=== PATIENT | male | born 1950 | race Caucasian/White ===

== ENCOUNTER 2018-04-11 15:52 | Inpatient (IN) | payer OTHER ==
[~2018-04-11] VITALS: Ht 175.3 cm; Wt 94.0 kg
[2018-04-11 16:29] LABS: INTER. NORMALIZED RATIO 1.6
[2018-04-11 16:32] LABS: PTT 26.8 SEC (25-37)
[2018-04-11 16:37] LABS: ALBUMIN 3.2 g/dL (3.2-4.8); CHLORIDE 96 mEq/L (99-109); SODIUM 134 mEq/L (136-147)
[2018-04-11 16:40] LABS: GLUCOSE 135 mg/dL (70-99); TOTAL PROTEIN 6.2 g/dL (6.4-8.3)
[2018-04-11 16:41] LABS: TOTAL BILIRUBIN 6.4 mg/dL (0.0-1.0)
[2018-04-11 16:43] LABS: ALKALINE PHOSPHATASE 209 IU/L (3-129); CREATININE 1.7 mg/dL (0.6-1.3); GFR ESTIMATE (CALCULATED) 43 mL/min/ (58.99-99999); SERUM ETHYL ALCOHOL < 10 mg/dL
[2018-04-11 16:44] LABS: UREA NITROGEN (BUN) 24 mg/dL (9-23)
[2018-04-11 16:45] LABS: AST (GOT) 197 IU/L (2-34); DIRECT BILIRUBIN 4.5 mg/dL (0.0-0.3)
[2018-04-11 16:46] LABS: ALT (GPT) 32 IU/L (3-49); TROP-I INTERPRETATION NEGATIVE; TROPONIN-I 0.02 ng/mL (0.0-0.30)
[2018-04-11 16:47] LABS: LIPASE 135 U/L (1.0-51.0)
[2018-04-11 16:53] LABS: POTASSIUM 2.3 mEq/L (3.7-5.4)
[2018-04-11 17:17] LABS: BASOPHIL (%) 0.3 % (0-1); EOSINOPHIL (%) 0.2 % (0-5); HEMATOCRIT 36.1 % (38.0-50.0); HEMOGLOBIN 13.3 G/DL (12.5-16.6); IMMATURE GRANULOCYTE (%) 1.3 % (0.0-0.7); LYMPHOCYTE (%) 8.2 % (15-42); LYMPHOCYTE COUNT 1.2 K/uL (1.0-2.8); MCH 36.3 PG (29.0-34.0); MCHC 36.8 G/DL (30.0-36.0); MCV 98.6 FL (86-99); MONOCYTE (%) 15.7 % (3-12); MONOCYTE COUNT 2.3 K/uL (0-0.8); NEUTROPHIL (%) 74.3 % (45-76); NEUTROPHIL COUNT 10.6 K/uL (1.8-6.4); PLATELET COUNT 113 K/uL (156-360); RBC DIS.WIDTH-SD 53.9 % (39-53); RED BLOOD COUNT 3.66 M/uL (4.00-5.50); WHITE BLOOD COUNT 14.3 K/uL (4.1-10.2)
[2018-04-11] MEDS ORDERED: LO-DOSE ASPIRIN81 M1 PO (18:07)
[2018-04-11 21:27] LABS: APPEARANCE SL.HAZY ((CLEAR)); BILIRUBIN SMALL; BLOOD NEGATIVE; COLOR AMBER ((YELLOW)); GLUCOSE (STRIP) NEGATIVE; KETONES NEGATIVE; LEUKOCYTES NEGATIVE; NITRITE NEGATIVE; PROTEIN (STRIP) 30; SPECIFIC GRAVITY 1.014 (1.000-1.030)
[2018-04-11 21:49] LABS: BACTERIA RARE /HPF; CALCIUM OXALATE CRYSTALS 3+ /HPF; EPITHELIAL CELLS RARE /HPF; HYALINE CASTS 20-30 /LPF; MUCUS TRACE /LPF; RED BLOOD CELLS 0-5 /HPF (0-5); UCUL ADDED? YES
[2018-04-11 22:45] VITALS: BP 150/73
[2018-04-11 23:35] LABS: MAGNESIUM 1.4 mg/dL (1.3-2.7)
[2018-04-11 23:40] LABS: PHOSPHORUS 1.2 mg/dL (2.5-4.9)
[2018-04-12 03:30] VITALS: BP 104/64
[2018-04-12 05:41] LABS: HEMOGLOBIN 12.2 G/DL (12.5-16.6); MCH 36.1 PG (29.0-34.0); MCHC 35.9 G/DL (30.0-36.0); MCV 100.6 FL (86-99); PLATELET COUNT 104 K/uL (156-360); RBC DIS.WIDTH-CV 15.4 % (11.8-14.6); RBC DIS.WIDTH-SD 55.9 % (39-53); RED BLOOD COUNT 3.38 M/uL (4.00-5.50); WHITE BLOOD COUNT 12.4 K/uL (4.1-10.2)
[2018-04-12 06:17] LABS: CHLORIDE 103 MEQ/L (99-109); CREATININE 1.3 MG/DL (0.6-1.3); GFR ESTIMATE (CALCULATED) 59 mL/min/ (58.99-99999); POTASSIUM 2.5 MEQ/L (3.7-5.4); SODIUM 138 MEQ/L (136-147); UREA NITROGEN (BUN) 23 mg/dL (9-23)
[2018-04-12 06:24] LABS: GLUCOSE 87 mg/dL (70-99)
[2018-04-12 07:41] LABS: THYROTROPIN (TSH) 10.1 MIU/L (0.4-5.5)
[2018-04-12 07:52] LABS: FOLIC ACID (FOLATE) 6.9 NG/ML (5.0-22.0)
[2018-04-12 07:56] VITALS: BP 113/67
[2018-04-12 10:45] LABS: HEPATITIS B SURFACE ANTIGEN Nonreactive
[2018-04-12 10:46] LABS: HEPATITIS B SURFACE ANTIBODY Nonreactive; HEPATITIS C ANTIBODY Nonreactive
[2018-04-12 13:15] LABS: CHLORIDE 102 MEQ/L (99-109); CREATININE 1.3 MG/DL (0.6-1.3); GFR ESTIMATE (CALCULATED) 59 mL/min/ (58.99-99999); GLUCOSE 129 mg/dL (70-99); POTASSIUM 2.9 MEQ/L (3.7-5.4); SODIUM 135 MEQ/L (136-147); UREA NITROGEN (BUN) 23 mg/dL (9-23)
[2018-04-12 13:26] VITALS: BP 119/72
[2018-04-12 15:57] VITALS: BP 142/80
[2018-04-12 20:16] VITALS: BP 139/78
[2018-04-13 00:11] VITALS: BP 133/77
[2018-04-13 04:32] VITALS: BP 114/73
[2018-04-13 05:33] LABS: BASOPHIL (%) 0.6 % (0-1); BASOPHIL COUNT 0.1 K/uL (0-0.1); EOSINOPHIL (%) 0.7 % (0-5); EOSINOPHIL COUNT 0.1 K/uL (0-0.3); HEMATOCRIT 35.6 % (38.0-50.0); HEMOGLOBIN 12.8 G/DL (12.5-16.6); IMMATURE GRANULOCYTE (%) 1.4 % (0.0-0.7); LYMPHOCYTE COUNT 1.5 K/uL (1.0-2.8); MCH 36.1 PG (29.0-34.0); MCV 100.3 FL (86-99); MONOCYTE (%) 15.4 % (3-12); MONOCYTE COUNT 1.9 K/uL (0-0.8); NEUTROPHIL (%) 69.9 % (45-76); NEUTROPHIL COUNT 8.8 K/uL (1.8-6.4); PLATELET COUNT 120 K/uL (156-360); RBC DIS.WIDTH-CV 15.9 % (11.8-14.6); RBC DIS.WIDTH-SD 58.1 % (39-53); RED BLOOD COUNT 3.55 M/uL (4.00-5.50); WHITE BLOOD COUNT 12.6 K/uL (4.1-10.2)
[2018-04-13 06:02] LABS: ALBUMIN 2.7 G/DL (3.2-4.8); ALKALINE PHOSPHATASE 155 IU/L (3-129); ALT (GPT) 20 IU/L (3-49); AST (GOT) 132 IU/L (2-34); CHLORIDE 106 MEQ/L (99-109); GFR ESTIMATE (CALCULATED) > 59 mL/min/ (58.99-99999); GLUCOSE 130 mg/dL (70-99); POTASSIUM 2.9 MEQ/L (3.7-5.4); SODIUM 138 MEQ/L (136-147); TOTAL BILIRUBIN 5.9 MG/DL (0.0-1.0); TOTAL PROTEIN 5.2 G/DL (6.4-8.3); UREA NITROGEN (BUN) 19 mg/dL (9-23)
[2018-04-13 08:57] VITALS: BP 166/90
[2018-04-13 11:43] VITALS: BP 161/90
[2018-04-13 17:59] VITALS: BP 143/77
[2018-04-13 19:20] VITALS: BP 154/78
[2018-04-14 00:10] VITALS: BP 151/86
[2018-04-14 03:14] VITALS: BP 141/88
[2018-04-14 05:21] LABS: BASOPHIL (%) 0.7 % (0-1); BASOPHIL COUNT 0.1 K/uL (0-0.1); EOSINOPHIL (%) 0.7 % (0-5); EOSINOPHIL COUNT 0.1 K/uL (0-0.3); HEMATOCRIT 36.2 % (38.0-50.0); HEMOGLOBIN 13.1 G/DL (12.5-16.6); IMMATURE GRANULOCYTE (%) 1.7 % (0.0-0.7); LYMPHOCYTE (%) 10.7 % (15-42); LYMPHOCYTE COUNT 1.3 K/uL (1.0-2.8); MCH 36.9 PG (29.0-34.0); MCHC 36.2 G/DL (30.0-36.0); MONOCYTE (%) 17.9 % (3-12); MONOCYTE COUNT 2.2 K/uL (0-0.8); NEUTROPHIL (%) 68.3 % (45-76); NEUTROPHIL COUNT 8.5 K/uL (1.8-6.4); NRBC (%) 0.2 /100 WBC (0-0); PLATELET COUNT 133 K/uL (156-360); RBC DIS.WIDTH-CV 17.3 % (11.8-14.6); RED BLOOD COUNT 3.55 M/uL (4.00-5.50); WHITE BLOOD COUNT 12.4 K/uL (4.1-10.2)
[2018-04-14 05:23] LABS: INTER. NORMALIZED RATIO 1.7
[2018-04-14 05:49] LABS: ALBUMIN 2.8 G/DL (3.2-4.8); ALKALINE PHOSPHATASE 151 IU/L (3-129); ALT (GPT) 21 IU/L (3-49); AST (GOT) 147 IU/L (2-34); CHLORIDE 107 MEQ/L (99-109); GFR ESTIMATE (CALCULATED) > 59 mL/min/ (58.99-99999); GLUCOSE 135 mg/dL (70-99); POTASSIUM 3.7 MEQ/L (3.7-5.4); SODIUM 140 MEQ/L (136-147); TOTAL BILIRUBIN 5.9 MG/DL (0.0-1.0); TOTAL PROTEIN 5.5 G/DL (6.4-8.3); UREA NITROGEN (BUN) 15 mg/dL (9-23)
[2018-04-14 09:21] VITALS: BP 120/80
[2018-04-14 12:13] VITALS: BP 145/81
[2018-04-14 19:22] VITALS: BP 126/72
[2018-04-15 00:08] VITALS: BP 126/77
[2018-04-15 04:10] VITALS: BP 126/75
[2018-04-15 05:44] LABS: BASOPHIL (%) 0.7 % (0-1); BASOPHIL COUNT 0.1 K/uL (0-0.1); EOSINOPHIL (%) 0.9 % (0-5); EOSINOPHIL COUNT 0.1 K/uL (0-0.3); HEMATOCRIT 39.1 % (38.0-50.0); HEMOGLOBIN 13.4 G/DL (12.5-16.6); IMMATURE GRANULOCYTE (%) 1.5 % (0.0-0.7); LYMPHOCYTE (%) 14.5 % (15-42); MCH 36.2 PG (29.0-34.0); MCHC 34.3 G/DL (30.0-36.0); MCV 105.7 FL (86-99); MONOCYTE (%) 18.1 % (3-12); MONOCYTE COUNT 2.5 K/uL (0-0.8); NEUTROPHIL (%) 64.3 % (45-76); NEUTROPHIL COUNT 8.8 K/uL (1.8-6.4); NRBC (%) 0.1 /100 WBC (0-0); PLATELET COUNT 159 K/uL (156-360); RBC DIS.WIDTH-CV 18.2 % (11.8-14.6); RBC DIS.WIDTH-SD 70.4 % (39-53); WHITE BLOOD COUNT 13.7 K/uL (4.1-10.2)
[2018-04-15 06:07] LABS: ALBUMIN 2.8 G/DL (3.2-4.8); ALKALINE PHOSPHATASE 170 IU/L (3-129); ALT (GPT) 20 IU/L (3-49); AST (GOT) 134 IU/L (2-34); CHLORIDE 107 MEQ/L (99-109); GFR ESTIMATE (CALCULATED) > 59 mL/min/ (58.99-99999); GLUCOSE 133 mg/dL (70-99); SODIUM 139 MEQ/L (136-147); TOTAL BILIRUBIN 5.8 MG/DL (0.0-1.0); TOTAL PROTEIN 5.6 G/DL (6.4-8.3); UREA NITROGEN (BUN) 15 mg/dL (9-23)
[2018-04-15 07:25] VITALS: BP 141/79
[2018-04-15 12:56] VITALS: BP 138/83
[2018-04-15 16:16] VITALS: BP 145/87
[2018-04-15 20:05] LABS: HEMATOCRIT 39.4 % (38.0-50.0); HEMOGLOBIN 13.8 G/DL (12.5-16.6); MCH 36.8 PG (29.0-34.0); MCV 105.1 FL (86-99); PLATELET COUNT 165 K/uL (156-360); RBC DIS.WIDTH-CV 18.6 % (11.8-14.6); RED BLOOD COUNT 3.75 M/uL (4.00-5.50)
[2018-04-15 20:10] LABS: INTER. NORMALIZED RATIO 1.6
[2018-04-15 20:12] LABS: PTT 34.5 SEC (25-37)
[2018-04-15 20:15] LABS: ALBUMIN 2.7 G/DL (3.2-4.8); CHLORIDE 105 MEQ/L (99-109); POTASSIUM 4.2 MEQ/L (3.7-5.4); SODIUM 139 MEQ/L (136-147); TOTAL BILIRUBIN 5.6 MG/DL (0.0-1.0)
[2018-04-15 20:20] LABS: ALKALINE PHOSPHATASE 165 IU/L (3-129); ALT (GPT) 17 IU/L (3-49); AST (GOT) 126 IU/L (2-34); GFR ESTIMATE (CALCULATED) > 59 mL/min/ (58.99-99999); GLUCOSE 121 mg/dL (70-99); TOTAL PROTEIN 5.5 G/DL (6.4-8.3); UREA NITROGEN (BUN) 15 mg/dL (9-23)
[2018-04-15 20:25] LABS: TROP-I INTERPRETATION NEGATIVE; TROPONIN-I 0.01 ng/mL (0.0-0.30)
[2018-04-15 20:34] LABS: COMMENTS - BLOOD GASES A+C+; DEVICE ROOM AIR; FI02 21 %; SITE RR
[2018-04-15 20:35] LABS: O2 SATURATION (CALCULATED) 91.5 % (95-99); PCO2 32 mm Hg (35-45); PO2 54 mm Hg (80-100); TOTAL RESP RATE 26 resp/min; pH 7.46 (7.35-7.45)
[2018-04-15 20:36] LABS: BASE EXCESS -0.3 mEq/L (-3 to +3); BICARBONATE 22.8 mEq/L (22-26); CARBOXY HGB 2.5 % (0-5); METHEMOGLOBIN 0.7 % (0-1.5)
[2018-04-15 21:00] VITALS: BP 139/85
[2018-04-15 22:40] LABS: TOTAL CHOLESTEROL 149 mg/dL (Desirable<200); TRIGLYCERIDES 200 MG/DL (Normal: <150)
[2018-04-15 22:42] LABS: LDL CHOLESTEROL 104 mg/dL (Desirable<100); NON-HDL CHOLESTEROL 144 mg/dL (Desirable<160)
[2018-04-15 22:43] LABS: HDL CHOLESTEROL < 5 MG/DL (Desirable>=40)
[2018-04-16] VITALS (7 sets, daily range): BP systolic 100–137; BP diastolic 63–87
[2018-04-16 05:18] LABS: BASOPHIL (%) 0.8 % (0-1); BASOPHIL COUNT 0.1 K/uL (0-0.1); EOSINOPHIL (%) 1.2 % (0-5); EOSINOPHIL COUNT 0.2 K/uL (0-0.3); HEMATOCRIT 38.2 % (38.0-50.0); HEMOGLOBIN 13.3 G/DL (12.5-16.6); IMMATURE GRANULOCYTE (%) 1.1 % (0.0-0.7); LYMPHOCYTE (%) 13.7 % (15-42); LYMPHOCYTE COUNT 1.7 K/uL (1.0-2.8); MCH 36.7 PG (29.0-34.0); MCHC 34.8 G/DL (30.0-36.0); MCV 105.5 FL (86-99); MONOCYTE (%) 18.9 % (3-12); MONOCYTE COUNT 2.3 K/uL (0-0.8); NEUTROPHIL (%) 64.3 % (45-76); NEUTROPHIL COUNT 7.9 K/uL (1.8-6.4); PLATELET COUNT 171 K/uL (156-360); RBC DIS.WIDTH-CV 18.7 % (11.8-14.6); RBC DIS.WIDTH-SD 72.3 % (39-53); RED BLOOD COUNT 3.62 M/uL (4.00-5.50); WHITE BLOOD COUNT 12.3 K/uL (4.1-10.2)
[2018-04-16 05:43] LABS: ALBUMIN 2.6 G/DL (3.2-4.8); ALKALINE PHOSPHATASE 165 IU/L (3-129); ALT (GPT) 20 IU/L (3-49); AST (GOT) 126 IU/L (2-34); CHLORIDE 107 MEQ/L (99-109); CREATININE 0.6 MG/DL (0.6-1.3); GFR ESTIMATE (CALCULATED) > 59 mL/min/ (58.99-99999); GLUCOSE 116 mg/dL (70-99); POTASSIUM 4.2 MEQ/L (3.7-5.4); SODIUM 138 MEQ/L (136-147); TOTAL BILIRUBIN 5.5 MG/DL (0.0-1.0); TOTAL PROTEIN 5.1 G/DL (6.4-8.3); UREA NITROGEN (BUN) 15 mg/dL (9-23)
[2018-04-16 09:44] LABS: HEMOGLOBIN A1c (GLYCOHEMOGLOB) 5.1 % (Below 5.7)
[2018-04-16 17:31] LABS: APPEARANCE CLEAR ((CLEAR)); BILIRUBIN SMALL; BLOOD NEGATIVE; COLOR AMBER ((YELLOW)); GLUCOSE (STRIP) NEGATIVE; KETONES NEGATIVE; LEUKOCYTES NEGATIVE; NITRITE NEGATIVE; PROTEIN (STRIP) NEGATIVE; SPECIFIC GRAVITY 1.045 (1.000-1.030); UCUL ADDED? NO
[2018-04-17 04:00] VITALS: BP 90/55
[2018-04-17 06:00] LABS: BASOPHIL (%) 0.9 % (0-1); BASOPHIL COUNT 0.1 K/uL (0-0.1); EOSINOPHIL (%) 1.1 % (0-5); EOSINOPHIL COUNT 0.1 K/uL (0-0.3); HEMATOCRIT 39.2 % (38.0-50.0); IMMATURE GRANULOCYTE (%) 1.4 % (0.0-0.7); LYMPHOCYTE (%) 13.6 % (15-42); LYMPHOCYTE COUNT 1.6 K/uL (1.0-2.8); MCH 35.7 PG (29.0-34.0); MCHC 33.2 G/DL (30.0-36.0); MCV 107.7 FL (86-99); MONOCYTE (%) 19.9 % (3-12); MONOCYTE COUNT 2.3 K/uL (0-0.8); NEUTROPHIL (%) 63.1 % (45-76); NEUTROPHIL COUNT 7.3 K/uL (1.8-6.4); PLATELET COUNT 165 K/uL (156-360); RBC DIS.WIDTH-CV 18.5 % (11.8-14.6); RBC DIS.WIDTH-SD 73.5 % (39-53); RED BLOOD COUNT 3.64 M/uL (4.00-5.50); WHITE BLOOD COUNT 11.6 K/uL (4.1-10.2)
[2018-04-17 06:22] LABS: ALBUMIN 2.4 G/DL (3.2-4.8); ALKALINE PHOSPHATASE 151 IU/L (3-129); ALT (GPT) 20 IU/L (3-49); AST (GOT) 131 IU/L (2-34); CHLORIDE 109 MEQ/L (99-109); GFR ESTIMATE (CALCULATED) > 59 mL/min/ (58.99-99999); GLUCOSE 106 mg/dL (70-99); POTASSIUM 4.5 MEQ/L (3.7-5.4); SODIUM 141 MEQ/L (136-147); TOTAL BILIRUBIN 4.9 MG/DL (0.0-1.0); TOTAL PROTEIN 4.8 G/DL (6.4-8.3); UREA NITROGEN (BUN) 14 mg/dL (9-23)
[2018-04-17 09:00] VITALS: BP 147/95
[2018-04-17 11:50] VITALS: BP 114/77
[2018-04-17 15:30] VITALS: BP 120/72
[2018-04-17 20:00] VITALS: BP 138/84
[2018-04-18 00:05] VITALS: BP 129/82
[2018-04-18 00:53] LABS: BASE EXCESS -0.2 mEq/L (-3 to +3); BICARBONATE 22.8 mEq/L (22-26); CARBOXY HGB 1.9 % (0-5); COMMENTS - BLOOD GASES C+; DEVICE NC; METHEMOGLOBIN 1.2 % (0-1.5); O2 FLOW 2 L/MIN; O2 SATURATION (CALCULATED) 93.1 % (95-99); PCO2 32 mm Hg (35-45); PO2 62 mm Hg (80-100); SITE RR; pH 7.46 (7.35-7.45)
[2018-04-18 03:45] VITALS: BP 114/67
[2018-04-18 04:27] LABS: C DIFF TOXIN NEGATIVE (NEGATIVE)
[2018-04-18 05:12] LABS: BASOPHIL (%) 0.8 % (0-1); BASOPHIL COUNT 0.1 K/uL (0-0.1); EOSINOPHIL (%) 1.1 % (0-5); EOSINOPHIL COUNT 0.2 K/uL (0-0.3); HEMATOCRIT 38.4 % (38.0-50.0); IMMATURE GRANULOCYTE (%) 1.1 % (0.0-0.7); LYMPHOCYTE (%) 14.2 % (15-42); LYMPHOCYTE COUNT 1.9 K/uL (1.0-2.8); MCH 36.7 PG (29.0-34.0); MCHC 33.9 G/DL (30.0-36.0); MCV 108.5 FL (86-99); MONOCYTE COUNT 2.4 K/uL (0-0.8); NEUTROPHIL (%) 64.8 % (45-76); NEUTROPHIL COUNT 8.6 K/uL (1.8-6.4); PLATELET COUNT 168 K/uL (156-360); RBC DIS.WIDTH-CV 18.9 % (11.8-14.6); RBC DIS.WIDTH-SD 75.9 % (39-53); RED BLOOD COUNT 3.54 M/uL (4.00-5.50); WHITE BLOOD COUNT 13.3 K/uL (4.1-10.2)
[2018-04-18 05:31] LABS: ALBUMIN 2.4 G/DL (3.2-4.8); ALKALINE PHOSPHATASE 165 IU/L (3-129); ALT (GPT) 20 IU/L (3-49); AST (GOT) 134 IU/L (2-34); CHLORIDE 112 MEQ/L (99-109); CREATININE 1.1 MG/DL (0.6-1.3); GFR ESTIMATE (CALCULATED) > 59 mL/min/ (58.99-99999); GLUCOSE 138 mg/dL (70-99); POTASSIUM 4.4 MEQ/L (3.7-5.4); SODIUM 144 MEQ/L (136-147); TOTAL BILIRUBIN 4.4 MG/DL (0.0-1.0); TOTAL PROTEIN 4.8 G/DL (6.4-8.3); UREA NITROGEN (BUN) 13 mg/dL (9-23)
[2018-04-18 08:08] VITALS: BP 129/81
[2018-04-18 11:15] VITALS: BP 138/74
[2018-04-18 15:48] VITALS: BP 130/78
[2018-04-18 17:41] LABS: APPEARANCE SL.HAZY ((CLEAR)); BILIRUBIN SMALL; BLOOD NEGATIVE; COLOR AMBER ((YELLOW)); GLUCOSE (STRIP) NEGATIVE; KETONES NEGATIVE; LEUKOCYTES NEGATIVE; NITRITE NEGATIVE; PROTEIN (STRIP) NEGATIVE
[2018-04-18 18:23] LABS: BACTERIA NONE SEEN /HPF; EPITHELIAL CELLS RARE /HPF; HYALINE CASTS TNTC /LPF; MUCUS 1+ /LPF; RED BLOOD CELLS 0-5 /HPF (0-5)
[2018-04-18 21:00] VITALS: BP 123/73
[2018-04-19] VITALS (7 sets, daily range): BP systolic 116–135; BP diastolic 68–89
[2018-04-19 05:53] LABS: BASOPHIL COUNT 0.1 K/uL (0-0.1); EOSINOPHIL (%) 1.5 % (0-5); EOSINOPHIL COUNT 0.2 K/uL (0-0.3); HEMATOCRIT 40.1 % (38.0-50.0); HEMOGLOBIN 13.5 G/DL (12.5-16.6); IMMATURE GRANULOCYTE (%) 1.1 % (0.0-0.7); LYMPHOCYTE (%) 14.4 % (15-42); MCH 36.2 PG (29.0-34.0); MCHC 33.7 G/DL (30.0-36.0); MCV 107.5 FL (86-99); MONOCYTE (%) 16.6 % (3-12); MONOCYTE COUNT 2.3 K/uL (0-0.8); NEUTROPHIL (%) 65.4 % (45-76); NEUTROPHIL COUNT 8.9 K/uL (1.8-6.4); PLATELET COUNT 187 K/uL (156-360); RBC DIS.WIDTH-CV 18.8 % (11.8-14.6); RBC DIS.WIDTH-SD 74.2 % (39-53); RED BLOOD COUNT 3.73 M/uL (4.00-5.50); WHITE BLOOD COUNT 13.7 K/uL (4.1-10.2)
[2018-04-19 06:05] LABS: ALBUMIN 2.4 G/DL (3.2-4.8); ALKALINE PHOSPHATASE 168 IU/L (3-129); ALT (GPT) 19 IU/L (3-49); AST (GOT) 131 IU/L (2-34); CHLORIDE 112 MEQ/L (99-109); CREATININE 1.1 MG/DL (0.6-1.3); GFR ESTIMATE (CALCULATED) > 59 mL/min/ (58.99-99999); GLUCOSE 124 mg/dL (70-99); POTASSIUM 4.2 MEQ/L (3.7-5.4); SODIUM 146 MEQ/L (136-147); TOTAL BILIRUBIN 3.8 MG/DL (0.0-1.0); UREA NITROGEN (BUN) 13 mg/dL (9-23)
[2018-04-20] VITALS (7 sets, daily range): BP systolic 101–136; BP diastolic 55–81
[2018-04-20 07:16] LABS: BASOPHIL (%) 0.8 % (0-1); BASOPHIL COUNT 0.1 K/uL (0-0.1); EOSINOPHIL (%) 1.3 % (0-5); EOSINOPHIL COUNT 0.2 K/uL (0-0.3); HEMATOCRIT 40.4 % (38.0-50.0); HEMOGLOBIN 13.6 G/DL (12.5-16.6); LYMPHOCYTE (%) 13.6 % (15-42); MCHC 33.7 G/DL (30.0-36.0); MCV 109.8 FL (86-99); MONOCYTE (%) 15.5 % (3-12); MONOCYTE COUNT 2.2 K/uL (0-0.8); NEUTROPHIL (%) 67.8 % (45-76); NEUTROPHIL COUNT 9.7 K/uL (1.8-6.4); PLATELET COUNT 191 K/uL (156-360); RBC DIS.WIDTH-CV 19.3 % (11.8-14.6); RBC DIS.WIDTH-SD 77.7 % (39-53); RED BLOOD COUNT 3.68 M/uL (4.00-5.50); WHITE BLOOD COUNT 14.3 K/uL (4.1-10.2)
[2018-04-20 07:36] LABS: ALBUMIN 2.4 G/DL (3.2-4.8); ALKALINE PHOSPHATASE 160 IU/L (3-129); ALT (GPT) 20 IU/L (3-49); AST (GOT) 122 IU/L (2-34); CHLORIDE 112 MEQ/L (99-109); CREATININE 1.2 MG/DL (0.6-1.3); GFR ESTIMATE (CALCULATED) > 59 mL/min/ (58.99-99999); GLUCOSE 113 mg/dL (70-99); POTASSIUM 3.9 MEQ/L (3.7-5.4); SODIUM 148 MEQ/L (136-147); TOTAL BILIRUBIN 3.4 MG/DL (0.0-1.0); TOTAL PROTEIN 4.9 G/DL (6.4-8.3); UREA NITROGEN (BUN) 14 mg/dL (9-23)
[2018-04-20 11:12] LABS: TYPE OF FLUID PARACENTESIS
[2018-04-20 12:05] LABS: APPEARANCE SLIGHTLY CLOUDY; BODY FLUID EOSINOPHILS 1 % (0-25); BODY FLUID RBC'S < 1000 /MM^3 (0-100); BODY FLUID WBC'S 97 /MM^3 (0-500); MONONUCLEAR WBC'S 59 %; POLYNUCLEAR WBC'S 41 % (0-25)
[2018-04-20 12:15] LABS: BODY FLUID GLUCOSE 142 MG/DL; BODY FLUID LDH 102 IU/L; BODY FLUID PROTEIN < 3.0 G/DL
[2018-04-20 14:12] LABS: BODY FL. SPEC. GRAV. 1.012
[2018-04-21 04:09] VITALS: BP 121/80
[2018-04-21 08:00] VITALS: BP 109/75
[2018-04-21 08:37] LABS: BASOPHIL COUNT 0.1 K/uL (0-0.1); EOSINOPHIL (%) 1.8 % (0-5); EOSINOPHIL COUNT 0.3 K/uL (0-0.3); HEMATOCRIT 45.2 % (38.0-50.0); HEMOGLOBIN 15.3 G/DL (12.5-16.6); IMMATURE GRANULOCYTE (%) 0.8 % (0.0-0.7); LYMPHOCYTE (%) 15.5 % (15-42); LYMPHOCYTE COUNT 2.2 K/uL (1.0-2.8); MCHC 33.8 G/DL (30.0-36.0); MCV 109.4 FL (86-99); MONOCYTE (%) 12.4 % (3-12); MONOCYTE COUNT 1.8 K/uL (0-0.8); NEUTROPHIL (%) 68.5 % (45-76); NEUTROPHIL COUNT 9.7 K/uL (1.8-6.4); PLATELET COUNT 208 K/uL (156-360); RBC DIS.WIDTH-CV 19.1 % (11.8-14.6); RED BLOOD COUNT 4.13 M/uL (4.00-5.50); WHITE BLOOD COUNT 14.2 K/uL (4.1-10.2)
[2018-04-21 09:00] LABS: ALBUMIN 2.6 G/DL (3.2-4.8); ALKALINE PHOSPHATASE 161 IU/L (3-129); ALT (GPT) 23 IU/L (3-49); AST (GOT) 149 IU/L (2-34); CHLORIDE 111 MEQ/L (99-109); CREATININE 1.3 MG/DL (0.6-1.3); GFR ESTIMATE (CALCULATED) 59 mL/min/ (58.99-99999); GLUCOSE 119 mg/dL (70-99); POTASSIUM 4.2 MEQ/L (3.7-5.4); SODIUM 146 MEQ/L (136-147); TOTAL BILIRUBIN 3.4 MG/DL (0.0-1.0); TOTAL PROTEIN 5.5 G/DL (6.4-8.3); UREA NITROGEN (BUN) 14 mg/dL (9-23)
[2018-04-21 15:39] VITALS: BP 130/76
[2018-04-21 19:34] VITALS: BP 119/79
[2018-04-22 00:06] VITALS: BP 120/75
[2018-04-22 03:34] VITALS: BP 111/81
[2018-04-22 07:05] VITALS: BP 121/68
[2018-04-22 15:10] VITALS: BP 127/78
[2018-04-22 23:32] LABS: BODY FLUID PH 8.1 (())
[2018-04-23 00:15] VITALS: BP 108/62
[2018-04-23 06:52] LABS: BASOPHIL COUNT 0.2 K/uL (0-0.1); EOSINOPHIL (%) 2.1 % (0-5); EOSINOPHIL COUNT 0.3 K/uL (0-0.3); HEMATOCRIT 41.3 % (38.0-50.0); IMMATURE GRANULOCYTE (%) 1.1 % (0.0-0.7); LYMPHOCYTE (%) 16.9 % (15-42); LYMPHOCYTE COUNT 2.6 K/uL (1.0-2.8); MCHC 33.9 G/DL (30.0-36.0); MCV 106.2 FL (86-99); MONOCYTE (%) 13.1 % (3-12); NEUTROPHIL (%) 65.8 % (45-76); NEUTROPHIL COUNT 10.3 K/uL (1.8-6.4); PLATELET COUNT 177 K/uL (156-360); RBC DIS.WIDTH-CV 17.5 % (11.8-14.6); RBC DIS.WIDTH-SD 69.2 % (39-53); RED BLOOD COUNT 3.89 M/uL (4.00-5.50); WHITE BLOOD COUNT 15.6 K/uL (4.1-10.2)
[2018-04-23 07:31] LABS: CHLORIDE 106 MEQ/L (99-109); CREATININE 1.2 MG/DL (0.6-1.3); GFR ESTIMATE (CALCULATED) > 59 mL/min/ (58.99-99999); GLUCOSE 109 mg/dL (70-99); POTASSIUM 4.4 MEQ/L (3.7-5.4); UREA NITROGEN (BUN) 16 mg/dL (9-23)
[2018-04-23 07:33] LABS: SODIUM 138 MEQ/L (136-147)
[2018-04-23 07:49] VITALS: BP 110/69
[2018-04-23 08:24] LABS: ALBUMIN 2.2 G/DL (3.2-4.8); ALKALINE PHOSPHATASE 164 IU/L (3-129); ALT (GPT) 19 IU/L (3-49); AST (GOT) 135 IU/L (2-34); DIRECT BILIRUBIN 1.4 mg/dL (0.0-0.3); TOTAL BILIRUBIN 2.9 MG/DL (0.0-1.0); TOTAL PROTEIN 4.9 G/DL (6.4-8.3)
[2018-04-23] MEDS ORDERED: XIFAXAN550 MG PO (09:06)
[2018-04-23] MEDS ORDERED: FUROSEMIDE20 MG PO (09:06)
[2018-04-23] MEDS ORDERED: SPIRONOLACTONE25 MG PO (09:06)
[2018-04-23] MEDS ORDERED: FOLIC ACID1 MG PO (09:06)
[2018-04-23] MEDS ORDERED: CALCIUM CARB1 TABLET PO (09:06)
[2018-04-23] MEDS ORDERED: THERAGRAN1 TABLET PO (09:06)
[2018-04-23] MEDS ORDERED: Chronulac,Cephulac,E PO (09:06)
[2018-04-23 15:48] VITALS: BP 92/62
[2018-04-23 23:56] VITALS: BP 118/68
[2018-04-24 06:03] LABS: BASOPHIL (%) 0.8 % (0-1); BASOPHIL COUNT 0.1 K/uL (0-0.1); EOSINOPHIL (%) 2.4 % (0-5); EOSINOPHIL COUNT 0.4 K/uL (0-0.3); HEMATOCRIT 37.6 % (38.0-50.0); HEMOGLOBIN 13.1 G/DL (12.5-16.6); LYMPHOCYTE (%) 16.5 % (15-42); LYMPHOCYTE COUNT 2.6 K/uL (1.0-2.8); MCH 36.8 PG (29.0-34.0); MCHC 34.8 G/DL (30.0-36.0); MCV 105.6 FL (86-99); MONOCYTE (%) 14.6 % (3-12); MONOCYTE COUNT 2.3 K/uL (0-0.8); NEUTROPHIL (%) 64.7 % (45-76); PLATELET COUNT 168 K/uL (156-360); RBC DIS.WIDTH-CV 17.1 % (11.8-14.6); RBC DIS.WIDTH-SD 66.4 % (39-53); RED BLOOD COUNT 3.56 M/uL (4.00-5.50); WHITE BLOOD COUNT 15.5 K/uL (4.1-10.2)
[2018-04-24 06:25] LABS: CHLORIDE 102 MEQ/L (99-109); CREATININE 1.3 MG/DL (0.6-1.3); GFR ESTIMATE (CALCULATED) 59 mL/min/ (58.99-99999); GLUCOSE 95 mg/dL (70-99); POTASSIUM 4.4 MEQ/L (3.7-5.4); SODIUM 136 MEQ/L (136-147); UREA NITROGEN (BUN) 17 mg/dL (9-23)
[2018-04-24 07:33] VITALS: BP 119/75
[2018-04-24] MEDS ORDERED: Thiamine,Vitamin B1 PO (09:48)
== END 2018-04-24 15:15 | DRG 433 ==
LOC: EME 15:52 → 5SOUTH 20:59 → EDOF 20:59 → 4EAST 20:59 → ENRESERV 21:00 → 4EAST 22:33 → 5SOUTH 22:35 → 4EAST 04-17 12:16 → ENRESERV 04-19 19:56 → 5SOUTH 04-19 21:26
PROVIDERS: Emergency Medicine; Family Medicine; Hospitalist; Internal Medicine; Internal Medicine Gastroenterology; Physician Assistant
PROC: HZ2ZZZZ Detoxification Services for Substance Abuse Treatment (ICD-10-PCS; 2018-04-11)
PROC: 0W9G3ZZ Drainage of Peritoneal Cavity, Percutaneous Approach (ICD-10-PCS; principal; 2018-04-20)
PROC: 0W9G3ZZ Drainage of Peritoneal Cavity, Percutaneous Approach (ICD-10-PCS; 2018-04-23)
DX: K70.40 Alcoholic hepatic failure without coma (principal); K70.11 Alcoholic hepatitis with ascites; E51.2 Wernicke's encephalopathy; F10.239 Alcohol dependence with withdrawal, unspecified; Y90.0 Blood alcohol level of less than 20 mg/100 ml; F05 Delirium due to known physiological condition; E87.6 Hypokalemia; E87.2 Acidosis; N17.9 Acute kidney failure, unspecified; D68.9 Coagulation defect, unspecified; D61.818 Other pancytopenia; E86.0 Dehydration; S60.221A Contusion of right hand, initial encounter; W19.XXXA Unspecified fall, initial encounter; Y92.231 Patient bathroom in hospital as the place of occurrence of the external cause; R47.02 Dysphasia; R29.810 Facial weakness; R33.9 Retention of urine, unspecified; R32 Unspecified urinary incontinence; K76.0 Fatty (change of) liver, not elsewhere classified; E83.51 Hypocalcemia; E83.42 Hypomagnesemia; R45.87 Impulsiveness; R26.9 Unspecified abnormalities of gait and mobility; F17.200 Nicotine dependence, unspecified, uncomplicated; Z79.82 Long term (current) use of aspirin
CPT/HCPCS: 36600; 49083; 70450; 70496; 70498; 71045; 71046; 72125; 73502; 73560; 74018; 76705; 80048; 80048 91; 80053; 80061; 80076; 81003; 82140; 82150 91; 82306; 82607; 82746; 82945; 82948; 83036; 83605; 83615 91; 83690; 83735; 83880; 83986 90; 84100; 84157; 84315; 84439; 84443; 84484; 85025; 85027; 85610; 85730; 86706; 86803; 87040; 87070; 87086; 87205; 87340; 87493; 88108; 88305; 89051; 92526 GN; 92610 GN; 93005; 94799; 95819; 97530 GO; 97530 GP; 99281; 99285; G0480; J0295; J1644; J3411; J3475; J3480; J7030; J7050; S0030

== ENCOUNTER → 2018-05-06 | Outpatient (CLI) | payer OTHER ==
[~2018-05-06] MED LIST: CALCIUM CARB1 TABLET PO; Chronulac,Cephulac,E PO; FOLIC ACID1 MG PO; FUROSEMIDE20 MG PO; LO-DOSE ASPIRIN81 M1 PO; SPIRONOLACTONE25 MG PO; THERAGRAN1 TABLET PO; Thiamine,Vitamin B1 PO; XIFAXAN550 MG PO
== END | disposition home or self-care (01) ==
LOC: RAD 08:13
PROC: 0W9G3ZZ Drainage of Peritoneal Cavity, Percutaneous Approach (ICD-10-PCS; principal; 2018-05-06)
DX: R18.8 Other ascites (principal)
CPT/HCPCS: 49083

== ENCOUNTER → 2018-05-20 | Outpatient (CLI) | payer OTHER ==
[~2018-05-20] MED LIST changes: +OYST-CAL-500500 MG PO; +VITAMIN D2000 UNI1 PO
== END ==
LOC: RAD 07:48
PROC: 0W9G3ZZ Drainage of Peritoneal Cavity, Percutaneous Approach (ICD-10-PCS; principal; 2018-05-20)
DX: K70.31 Alcoholic cirrhosis of liver with ascites (principal)
CPT/HCPCS: 49083